=== PATIENT | female | born 1980 | race Caucasian/White ===

== ENCOUNTER 2018-07-01 03:19 | Emergency (ER) | payer OTHER ==
[~2018-07-01] VITALS: Ht 165.1 cm; Wt 77.1 kg
[2018-07-01 03:40] VITALS: BP 160/90
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
[2018-07-01] MEDS ORDERED: Tylenol #3 tab (300mg/30mg) PO ONE (03:45)
[2018-07-01] MEDS ORDERED: Tetanus/Diptheria/Pertussis IM ONE (03:45)
[2018-07-01] MEDS ORDERED: Bacitracin Oint UD TOPIC ONE ×2 (03:48→04:00)
--- NOTE | 2018-07-01 04:23 | Diagnostic Imaging Report ---
EXAM: CT Head Without Intravenous Contrast CLINICAL HISTORY: H/A TECHNIQUE: Axial computed tomography images of the head/brain without intravenous contrast. CTDI is 70.53 mGy and DLP is 1471 mGy-cm. One or more of the following dose reduction techniques were used: automated exposure control, adjustment of the mA and/or kV according to patient size, use of iterative reconstruction technique. COMPARISON: None available FINDINGS: Brain: No acute intracranial hemorrhage. No extra-axial fluid collection. No significant white matter disease. Midline shift: No midline shift. Ventricles: Unremarkable. No ventriculomegaly. Bones/joints: Unremarkable. No acute fracture. Soft tissues: Unremarkable. Sinuses: Unremarkable as visualized. No acute sinusitis. Mastoid air cells: Unremarkable as visualized. No mastoid effusion. IMPRESSION: No acute intracranial abnormality.
[2018-07-01] MEDS ORDERED: TYLENOL EXTRA500 MG ORAL (04:27)
[2018-07-01 04:36] VITALS: BP 160/90
--- NOTE | 2018-07-01 04:37 | NUR ---
ED Nurse Note: Patient cleared by ERMD. Patient AOx4, VSS, ambulatory with steady gait, no s/s of acute distress noted at this time. Patient provided with discharge instructions and medication prescriptions. Patient verbalized understanding. Patient took all personal belongings with her. Patient instructed to follow up with PCP in 1 week. Patient escorted by [employer].
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
== END 2018-07-01 04:38 ==
LOC: EDBD 03:19 → EMR 03:48
DX: S09.90XA Unspecified injury of head, initial encounter (principal); S00.412A Abrasion of left ear, initial encounter; Y04.2XXA Assault by strike against or bumped into by another person, initial encounter; Y92.9 Unspecified place or not applicable; I10 Essential (primary) hypertension; E03.9 Hypothyroidism, unspecified; Z23 Encounter for immunization
CPT/HCPCS: 70450; 90471; 90715; 99284